=== PATIENT | female | born 1990 | race Caucasian/White ===

== ENCOUNTER 2022-12-19 08:51 | Inpatient (IN) | payer BC ==
[~2022-12-19] VITALS: Ht 180.3 cm; Wt 140.5 kg
[2022-12-20] VITALS (17 sets, daily range): BP systolic 101–152; BP diastolic 49–87; PULSE 77–105; TEMP 97.2–98.3
[2022-12-20] MEDS ORDERED: PRENATAL TABLET PO (06:42)
[2022-12-20] MEDS ORDERED: ZYRTEC5 MG PO (06:42)
[2022-12-20 07:29] LABS: BASO % 0.2 % (0.0-2.0); EOS # 0.1 K/mm3 (0.0-0.7); EOS % 0.7 % (0.0-4.0); GRAN # 8.8 K/mm3 (1.4-6.5); HEMOGLOBIN 11.9 g/dl (12.5-16.0); LYMPH # 1.9 K/mm3 (1.2-3.4); LYMPH % 16.3 % (20.0-51.0); MEAN CELL VOLUME 78 fl (80.0-100.0); MEAN CORPUSCULAR HEMOGLOBIN 26 pg (27-31); MEAN CORPUSCULAR HGB CONC 33 g/dl (33.0-37.0); MEAN PLATELET VOLUME 9.8 fl (7.4-10.4); MONO # 0.6 K/mm3 (0.1-0.6); PLATELET COUNT 256 K/mm3 (130-400); RED BLOOD COUNT 4.61 M/mm3 (4.10-5.30); REDCELL DISTRIBUTION WIDTH-CV 14.6 % (11.5-14.5)
[2022-12-20 07:30] LABS: HEMATOCRIT 35.9 % (37.0-47.0)
[2022-12-20 08:14] LABS: ALBUMIN 2.8 gm/dL (3.5-5.0); BILIRUBIN,TOTAL 0.2 mg/dL (0.2-1.2); CALCIUM 9.5 mg/dL (8.4-10.2); CREATININE, serum 0.78 mg/dL (0.57-1.11); POTASSIUM 4.2 mmol/L (3.5-4.5); TOTAL PROTEIN 6.6 gm/dL (6.2-8.1)
--- NOTE | 2022-12-20 12:40 | NUR ---
THIS RN GIVES REPORT TO MALLORY CARTY
--- NOTE | 2022-12-20 18:16 | NUR ---
1720 THIS NURSE REMOVED KAHN AND PROVIDED LYNN CARE. BEDDING WAS CHANGED AND HAT WAS PLACED IN TOILET. EDEMA NOTED TO LOWER EXTREMETIES. PATIENT WALKED INDEPENDENTLY.
[2022-12-21 05:27] VITALS: BP 135/80; PULSE 85; TEMP 98.1
[2022-12-21 06:15] LABS: MEAN CELL VOLUME 79 fl (80.0-100.0); MEAN CORPUSCULAR HGB CONC 33 g/dl (33.0-37.0); MEAN PLATELET VOLUME 9.6 fl (7.4-10.4); PLATELET COUNT 244 K/mm3 (130-400); RED BLOOD COUNT 3.74 M/mm3 (4.10-5.30); REDCELL DISTRIBUTION WIDTH-CV 14.7 % (11.5-14.5)
[2022-12-21 06:19] LABS: ALBUMIN 2.6 gm/dL (3.5-5.0); BILIRUBIN,TOTAL 0.2 mg/dL (0.2-1.2); CALCIUM 9.3 mg/dL (8.4-10.2); CREATININE, serum 0.78 mg/dL (0.57-1.11); POTASSIUM 4.3 mmol/L (3.5-4.5)
[2022-12-21 06:20] LABS: HEMATOCRIT 29.5 % (37.0-47.0); HEMOGLOBIN 9.7 g/dl (12.5-16.0); MEAN CORPUSCULAR HEMOGLOBIN 26 pg (27-31)
[2022-12-21 08:15] VITALS: BP 142/75; PULSE 84; TEMP 97.6
--- NOTE | 2022-12-21 12:22 | NUR ---
Charge Authorizer rounds: Charge Authorizer provided blessing for Baby Elizabeth Mayo. Charge Authorizer provided Mother with a Bible and blessing certificate.
[2022-12-21 16:14] VITALS: BP 145/62; TEMP 97.3
[2022-12-21 20:35] VITALS: BP 125/71; PULSE 94; TEMP 97.8
[2022-12-22 08:15] VITALS: BP 148/76; PULSE 106; TEMP 97.8
[2022-12-22] MEDS ORDERED: IBU600 MG PO (10:15)
[2022-12-22] MEDS ORDERED: PERCOCET 325 MG1 TA2 PO (10:15)
--- NOTE | 2022-12-22 11:49 | NUR ---
DISCHARGE EDUCATION COMPLETED. PATIENT EDUCATED ON FOLLOWUP APPOINTMENTS AND PRESCRIPTIONS. QUESTIONS INVITED AND ANSWERED.
== END 2022-12-22 12:15 | disposition home or self-care (01) | DRG 788 ==
LOC: OB 08:51
PROVIDERS: ADMIT Student in an Organized Health Care Education/Training Program
PROC: 10D00Z1 Extraction of Products of Conception, Low, Open Approach (ICD-10-PCS; principal; 2022-12-20)
DX: O36.63X0 Maternal care for excessive fetal growth, third trimester, not applicable or unspecified (principal); Z37.0 Single live birth; O14.94 Unspecified pre-eclampsia, complicating childbirth; O34.13 Maternal care for benign tumor of corpus uteri, third trimester; D25.9 Leiomyoma of uterus, unspecified; O99.214 Obesity complicating childbirth; Z3A.38 38 weeks gestation of pregnancy; Z79.82 Long term (current) use of aspirin; Z86.16 Personal history of COVID-19
CPT/HCPCS: J0690; J1100; J1885; J2405; J2590; J2765; J7120